=== PATIENT | female | born 1930 | race Caucasian/White ===

== ENCOUNTER 2017-10-24 06:51 | Inpatient (IN) ==
[2017-10-24] MEDS ORDERED: ceFAZolin 2 GM Premix Inj 2 GM/50 ML PIGGYBACK IV.SIG ONE (07:53)
[2017-10-24] MEDS ORDERED: Vancomycin Inj 1 GM/200 ML PIGGYBACK IV.SIG ONE (07:53)
[2017-10-24] MEDS ORDERED: Vancomycin Inj 1 GM/200 ML PIGGYBACK IV.SIG SCH (08:00)
[2017-10-24] MEDS ORDERED: ceFAZolin 2 GM Premix Inj 2 GM/50 ML PIGGYBACK IV.SIG SCH (08:00)
[2017-10-24] MEDS ORDERED: Chlorhexidine 4% Topical 120 APPLIC/120 ML Bottle TOPICAL SCH (08:00)
[2017-10-24] MEDS ORDERED: SODIUM CHLOR 0.9% IV.SIG SCH (08:00)
[2017-10-24] MEDS ORDERED: Chlorhexidine Gluconate 2% 1 Pack (2 Cloths) TOPICAL SCH (08:00)
[2017-10-24] MEDS ORDERED: Metoprolol Tartrate 25 MG Tablet PO SCH (08:00)
[2017-10-24] MEDS ORDERED: TRANEXAMIC ACID IV.SIG SCH (08:00)
[2017-10-24] MEDS ORDERED: Sodium Chlor 0.9% Inj 40 ML, Bupivacaine Liposo PF 1.3% Inj 20 ML P-ARTICULR SCH ×2 (08:00)
[2017-10-24] MEDS ORDERED: Sodium Chlor 0.9% Inj 500 ML IV.SIG SCH (08:00)
[2017-10-24] MEDS ORDERED: Sodium Chlor 0.9% Inj 40 ML, Bupivacaine Liposo PF 1.3% Inj 20 ML P-ARTICULR ONE ×2 (08:11)
[2017-10-24] MEDS ORDERED: Dexamethasone PF Inj 10 MG/ML Vial ONE (08:45)
[2017-10-24] MEDS ORDERED: Post-op Orders (for Pharmacy) OTHER STA (11:58)
[2017-10-24] MEDS ORDERED: SODIUM CHLOR 0.9% IV.SIG ONE (11:58)
[2017-10-24] MEDS ORDERED: Aluminum/Magnesium/Simethacone Susp 30 ML UDC PO PRN (11:58)
[2017-10-24] MEDS ORDERED: Bisacodyl 10 MG Supp RECTAL PRN (11:58)
[2017-10-24] MEDS ORDERED: TRANEXAMIC ACID IV.SIG ONE (11:58)
[2017-10-24] MEDS ORDERED: Phenylephrine/NS 1000 MCG/10ML Syringe IV.PUSH ONE (12:00)
[2017-10-24] MEDS ORDERED: Morphine Inj 4 MG/ML Vial IV.PUSH PRN (12:00)
[2017-10-24] MEDS ORDERED: Glycopyrrolate Inj 1 MG/5 ML Syringe IV.PUSH ONE (12:00)
[2017-10-24] MEDS ORDERED: Lidocaine PF 1% Inj 5 ML Syringe INFILTRATN ONE (12:00)
[2017-10-24] MEDS ORDERED: Neostigmine Inj 5 MG/5 ML Syringe IV.PUSH ONE (12:00)
--- NOTE | 2017-10-24 12:04 | XR ---
EXAM DATE: 10/24/2017 11:58 AM EDT AGE/SEX: 87 years / Female INDICATIONS: Left total hip replacement. CLINICAL DATA: This is the patient's initial encounter. Patient reports that signs and symptoms have been present for 1 day and indicates a pain score of Nonresponsive. MEDICAL/SURGICAL HISTORY: None. None. COMPARISON: No prior exams available for comparison. FINDINGS: 2 spot intraoperative fluoroscopic views of the left hip demonstrate a total hip arthroplasty. Compon ents appear well seated. CONCLUSION: Postoperative changes left hip arthroplasty. Electronically signed by: Zafar Painter MD 10/24/2017 12:03 PM EDT
--- NOTE | 2017-10-24 12:05 | P.OP ---
- Preoperative Diagnosis (1) Osteoarthritis of left hip - Postoperative Diagnosis (1) Osteoarthritis of left hip Date of procedure: 10/24/17 Procedure: Left total hip arthroplasty Surgeon: Dony Lucero MD Oven Laborer: LIBBY Wade The surgical procedure was assisted by my Advanced Registered Nurse Practitioner. My GEOSCIENCE PROFESSOR presence was necessary throughout this case for the manipulation and positioning of the surgical extremity. My GEOSCIENCE PROFESSOR was assisting me throughout the duration of this procedure. The skill set of an Advance Registered Nurse Practitioner was medically necessary to complete this procedure. During the surgical case, the robot technician was working at the back table and the Advance Registered Nurse Practitioner was directly assisting me. Operation and Findings: IMPLANT DESCRIPTION: 1. [place] Gription Cup, acetabular size 48. 2. [place] AltrX polyethylene, neutral. 4. [place] femoral stem size 9, no collar, standard offset. 5. Femoral head/neck metal, 32, +1. ESTIMATED BLOOD LOSS: 150 cc. JUSTIFICATION FOR PROCEDURE: The patient has end-stage osteoarthritis to the hip. There is an attached conservative measures pathway form in the chart that describes the nonoperative measures that were undertaken prior to consideration of surgical management. The patient understood the risks and benefits of surgical management. See my office notes for further details. PROCEDURE: The patient was brought back to the operative theatre. Adequate anesthesia was obtained. The patient received intravenous vancomycin and Ancef. The patient was carefully placed on the operative table. The lower extremity was prepped and draped in the usual sterile fashion. Fluoroscopic images were obtained. We made a standard anterior incision over the hip. We dissected through the TFL fascia, exposing the anterior capsule. Arthrotomy was performed in a T-shaped fashion. The capsule was tagged with a #2 FiberWire. End-stage arthritis was identified. Osteotomy was performed through the femoral neck exposing the acetabulum. Remnants of the labrum were resected and osteophytes were removed. We sequentially reamed the acetabulum. We trialed the hip and placed the final cup into position. This was done under fluoroscopic guidance to obtain the appropriate inclination and anteversion. A manhole cover was placed into the acetabular component. We then placed the final polyethylene into position and confirmed that it was well seated. Capsular attachments on the calcar and the inner aspect of the greater trochanter were resected. On the proximal aspect of the femur we used a rongeur , box osteotome, canal finder, sequential broaches and lateralizing rasp. We calcar planed the proximal femur. Then thoroughly irrigated the wound. We trialed the hip with the appropriate size stem. We placed the final stem in to position and trialed again. The hip was stable while it was externally rotated 70 degrees when the leg was lowered to the floor. The final head was applied, and final fluoroscopic images were obtained. The wound was thoroughly irrigated again. Interarticular injection of liposomal bupivacaine was given. The capsule was closed with #2 FiberWire and #1 Vicryl. The deep fascia was closed with a #2 Stratafix, followed by 2-0 Vicryl in the skin and Dermabond dressing. Postop plan is to weight-bear as tolerated. DVT prophylaxis will be performed with Brian, RADHA pope, early mobilization, and Lovenox followed by resumption of outpatient Plavix.
[2017-10-24] MEDS ORDERED: fentaNYL Citrate Inj 100 MCG/2 ML Ampul ONE ×2 (12:27)
[2017-10-24] MEDS ORDERED: *morphine SULFATE 4 MG/ML PERIprocedure ONLY ONE (12:57)
[2017-10-24] MEDS: Sod Chloride 0.9% Inj 1,000 ML IV.CONT SCH (13:04)
--- NOTE | 2017-10-24 13:10 | XR ---
EXAM DATE: 10/24/2017 1:01 PM EDT AGE/SEX: 87 years / Female INDICATIONS: Post op left hip. CLINICAL DATA: This is the patient's initial encounter. Patient reports that signs and symptoms have been present for 1 day and indicates a pain score of Nonresponsive. MEDICAL/SURGICAL HISTORY: None. None. COMPARISON: [facility] [place] INJECTION- HIP, LEFT, 08/04/2016. . FINDINGS: Left total hip arthroplasty. Small amount of subcutaneous air about the left hip as expected. Compone nts appear well seated. There is severe narrowing of the right hip joint. Osteophytosis is seen. No f racture or dislocation. CONCLUSION: Postop left hip. Electronically signed by: Zafar Painter MD 10/24/2017 1:09 PM EDT
--- NOTE | 2017-10-24 15:39 | P.DCO ---
- Physical Therapy Physical Therapy: Gait training, Transfer training, bed to chair Hip: Total hip Left Lower Extremity Weight Bearing: Weight bearing as tolerated Left Lower Extremity Range of Motion: Active ROM - Nursing Nursing: Lulú jeffrey Dressing changes: Do not change dressing Additional instructions: First dressing change in the office - Certification Need for Home Health services: I have seen patient Bernadine Sharma on 10/24/17. My clinical findings support the need for the requested home health care services because: Need for Home Health Services: Limited ability to care for self, High risk of falls Homebound Certification: I certify that my clinical findings support that this patient is homebound because: Homebound Certification: Post-op weakness, Unsteady gait/balance
--- NOTE | 2017-10-24 17:23 | P.CON ---
History of Present Illness Service: Orthopedic service Consult date: 10/24/17 Requesting Physician: Dony Lucero Reason for Consult: Assist with medical management Primary Care Provider: Ramakrishna Prince MD Family Provider: Ramakrishna Prince MD Chief Complaint: s/p left total hip arthroplasty History of Present Illness: This is an 87-year-old female who appears much younger than stated age with a past medical history significant for hypertension, dyslipidemia, history of CVA in her 40s with osteoarthritis who tried and failed numerous attempts at conservative therapy for treatment of her debilitating left hip pain and underwent an elective left total hip replacement surgery performed by Dr. Lucero earlier today. Hospitalist services have been consulted to assist with ongoing medical management. Patient seen and examined. Postoperatively, patient states she is doing very well. States her pain is controlled at present. She denies any complaints of fever or chills. She denies any chest pain or shortness of breath. She denies any nausea, vomiting or abdominal pain. Review of Systems All other systems reviewed negative except as stated in HPI PMFSH - History History Provided By: Patient - Medical History Medical History: Medical History (Last Reviewed 10/24/17 @ 15:30 by Amanda Escamilla, PT) Osteoporosis Sleep apnea H/O: GI bleed H/O: stroke High cholesterol History of hysterectomy Hypertension - Surgical History Surgical History: Surgical History (Last Reviewed 10/24/17 @ 15:30 by Amanda Escamilla PT) History of tonsillectomy and adenoidectomy Hx of bilateral cataract extraction Hx of cholecystectomy - Family History Family History: Family History (Last Updated 10/24/17 @ 17:22 by Elmira Broussard) Father Meningitis - Tobacco History Second Hand Smoke Exposure: No Smoking Status: Never smoker - Alcohol History How Often Do You Have a Drink Containing Alcohol: Never - Substance Use History Substance History: No History of Abuse - Travel History Recent Travel in the [place] Within the Last 8 Weeks: No Recent Travel Out of the Country Within the Last 8 Weeks: No Medications and Allergies Active Medications: Active Medications Hydrocodone Bitart/Acetaminophen (Amelia 5/325) 1 tab PO Q4H PRN PRN Reason: PAIN LESS THAN 5 ON SCALE Hydrocodone Bitart/Acetaminophen (Amelia 5/325) 2 tab PO Q6H PRN PRN Reason: PAIN SCALE 5 TO 10 Al Hydrox/Mg Hydrox/Simethicone (Mag-Al Plus Susp Liq) 30 ml PO Q6H PRN PRN Reason: INDIGESTION Al Hydroxide/Mg Hydroxide (Milk Of Magnesia Liq) 30 ml PO BID PRN PRN Reason: Mild Constipation Atorvastatin Calcium (Lipitor) 10 mg PO AC DINNER [facility] Bisacodyl (Dulcolax Supp) 10 mg RECTAL DAILY PRN PRN Reason: SEVERE CONSITIPATION Chlorhexidine Gluconate (Chlorhexidine 2% Cloth) 3 pack TOPICAL DEMOGRAPHER [facility] Stop: 10/27/17 07:50 Last Admin: 10/24/17 07:20 Dose: 3 pack Chlorhexidine Gluconate (Hibiclens 4% Topical) 1 applicatio TOPICAL ONCE [facility] Stop: 10/28/17 07:59 Last Admin: 10/24/17 07:30 Dose: 1 applicatio Dexamethasone Sodium Phosphate (Decadron Inj) 10 mg IV.PUSH ONCE ONE Stop: 10/25/17 08:01 Diphenhydramine HCl (Benadryl) 25 mg PO Q6H PRN PRN Reason: ITCHING Enoxaparin Sodium (Lovenox Inj) 40 mg SQ Q24H [facility] Hydrochlorothiazide (Hydrodiuril) 12.5 mg PO DAILY [facility] Lactated Ringer's (Lr 1000 Ml Inj) 1,000 mls @ 30 mls/hr IV.SIG .Q24H [facility] Stop: 10/27/17 07:50 Last Admin: 10/24/17 07:45 Dose: 30 mls/hr Sodium Chloride (Ns Inj) 500 mls @ 30 mls/hr IV.SIG .Q10H [facility] Stop: 10/27/17 07:50 Tranexamic Acid 574 mg/ Sodium (Chloride) 105.74 mls @ 200 mls/hr IV.SIG ONCE [facility] Stop: 10/25/17 07:59 Last Admin: 10/24/17 10:19 Dose: 200 mls/hr Vancomycin/Sodium Chloride (Vancomycin Inj) 1 gm in 200 mls @ 200 mls/hr IV.SIG DEMOGRAPHER [facility] Stop: 10/28/17 07:59 Last Infusion: 10/24/17 10:57 Dose: Infused Cefazolin Sodium 1,000 mg/ (Sodium Chloride) 100 mls @ 200 mls/hr IV.SIG Q6H [facility] Stop: 10/25/17 06:29 Sodium Chloride (Ns Inj) 1,000 mls @ 80 mls/hr IV.CONT .[id number] [facility] Last Admin: 10/24/17 13:04 Dose: 80 mls/hr Lactulose (Lactulose Liq) 30 ml PO DAILY PRN PRN Reason: SEVERE CONSITIPATION Losartan Potassium (Cozaar) 50 mg PO DAILY [facility] Metoprolol Tartrate (Lopressor) 25 mg PO DEMOGRAPHER [facility] Stop: 10/27/17 07:50 Last Admin: 10/24/17 08:08 Dose: Not Given Miscellaneous Information ([facility]) 1 each OTHER UNSCH PRN PRN Reason: SEE LABEL COMMENTS Stop: 10/25/17 13:50 Morphine Sulfate (Morphine Inj) 1 mg IV.PUSH Q3H PRN PRN Reason: BREAKTHROUGH PAIN Multivitamins/Minerals (Theragran-M) 1 tab PO BID [facility] Stop: 12/23/17 20:59 Ondansetron HCl (Zofran Inj) 4 mg IV.PUSH Q6H PRN PRN Reason: NAUSEA OR VOMITING Povidone Iodine (Betadine 5% Antisepsis Kit) 1 applicatio EACH NARE DEMOGRAPHER [facility] Stop: 10/27/17 07:50 Last Admin: 10/24/17 08:08 Dose: Not Given Povidone Iodine (Betadine 7.5% Scrub) 1 applicatio TOPICAL ONCE [facility] Stop: 10/28/17 07:59 Senna/Docusate Sodium (Chiquis-Colace) 1 tab PO BID [facility] Sennosides (Senokot) 17.2 mg PO BID PRN PRN Reason: Moderate Constipation Sodium Chloride (Ns Flush) 2 ml IV.FLUSH BID [facility] Sodium Chloride (Ns Flush) 2 ml IV.FLUSH PRN PRN PRN Reason: FLUSH AFTER USING IV ACCESS Vitamin D (Vitamin D3) 2,000 unit PO DAILY [facility] Zolpidem Tartrate (Ambien) 10 mg PO [facility] Allergies Allergy/AdvReac Type Severity Reaction Status Date / Time ciprofloxacin Allergy Severe Fatigue Verified 10/24/17 07:46 cortisone Allergy Severe STOMACH Verified 10/24/17 07:46 HEMORRHAGE nitrofurantoin Allergy Severe Fatigue Verified 10/24/17 07:46 Sulfa (Sulfonamide Allergy Severe Fatigue Verified 10/24/17 07:46 Antibiotics) Home Medications Medication Instructions Recorded Confirmed Type acetaminophen [Tylenol Arthritis 2 tab PO DAILY PRN 10/08/17 10/24/17 History Pain] atorvastatin 10 mg PO AC DINNER 10/08/17 10/24/17 History calcium carbonate [Calcium 600] 600 mg PO DAILY 10/08/17 10/24/17 History cholecalciferol (vitamin D3) 2 tab PO DAILY 10/08/17 10/24/17 History [Vitamin D3] clopidogrel 75 mg PO DAILY 10/08/17 10/24/17 History hydrochlorothiazide 12.5 mg PO DAILY 10/08/17 10/24/17 History losartan 50 mg PO DAILY 10/08/17 10/24/17 History [id number]-FA-Ca carb-vit K 1 tab PO DAILY 10/08/17 10/24/17 History [Women's Multivitamin] polyethylene glycol 3350 [Miralax] 17 g PO EVERY OTHER DAY PRN 10/08/17 History wheat dextrin [Benefiber Clear SF 3 g PO EVERY OTHER DAY 10/08/17 10/24/17 History (dextrin)] zolpidem 10 mg PO HS 10/08/17 10/24/17 History Physical Exam Vital signs: Vital Signs 10/24/17 07:40 10/24/17 12:22 10/24/17 12:30 Temperature 98.2 F 97.4 F L Pulse Rate 79 100 H 88 Respiratory Rate 20 22 14 Blood Pressure 142/71 H 136/63 135/62 Pulse Oximetry 94 L 94 L 10/24/17 12:45 10/24/17 13:00 10/24/17 13:26 Temperature Pulse Rate 80 81 Respiratory Rate 24 22 Blood Pressure 126/76 136/60 Pulse Oximetry 94 L 94 L 92 L 10/24/17 15:12 10/24/17 15:36 10/24/17 15:37 Temperature 98.0 F Pulse Rate 90 82 Respiratory Rate 20 18 Blood Pressure 129/61 125/52 L Pulse Oximetry 94 L 96 96 Intake & Output 10/23/17 10/24/17 10/24/17 18:59 06:59 18:59 Intake Total 2049 / 2049 Output Total 150 / 150 Balance 1900 / 1900 Weight 57.4 kg Intake: IV 250 / 250 Vancomycin Inj 1 gm In 200 ml @ 200 / 200 200 mls/hr IV.SIG DEMOGRAPHER CHARLIE Rx#:[id number] Ancef 2 GM Premix Inj 2 gm In 50 / 50 50 ml @ 100 mls/hr IV.SIG DEMOGRAPHER [facility] Rx#:[id number] Anesthesia Amount 1700 / 1700 Other 100 / 100 Output: Estimated Blood Loss 150 / 150 Other: Date of Last Bowel Movement 10/23/17 Weight On Admission 57.4 kg Narrative: GENERAL: This is a well-developed, well-nourished elderly female, in no acute distress. Appears younger than stated age. Sitting up in bed awake and alert. Appears comfortable. SKIN: Warm and dry. HEAD: Atraumatic. Normocephalic. EYES: Pupils equal and round. No scleral icterus. No injection or drainage. ENT: No nasal bleeding or discharge. Mucous membranes pink and moist. NECK: Trachea midline. No JVD. CARDIOVASCULAR: Regular rate and rhythm. RESPIRATORY: No accessory muscle use. Clear to auscultation. Breath sounds equal bilaterally. GASTROINTESTINAL: Abdomen soft, non-tender, nondistended. Hepatic and splenic margins not palpable. MUSCULOSKELETAL: Extremities without clubbing, cyanosis, or edema. No obvious deformities. s/p L THR with postop dressing in place. NEUROLOGICAL: Awake and alert. No obvious cranial nerve deficits. Motor grossly within normal limits. Able to move all extremities spontaneously. Normal speech. PSYCHIATRIC: Appropriate mood and affect; insight and judgment normal. Assessment and Plan - Assessment (1) Hypertension Code(s): I10 - Essential (primary) hypertension Status: Acute (2) Status post total hip replacement, left Code(s): Z96.642 - Presence of left artificial hip joint Status: Acute (3) Osteoarthritis of left hip Code(s): M16.12 - Unilateral primary osteoarthritis, left hip Status: Acute - Plan 87-year-old female who appears much younger than stated age with a past medical history significant for hypertension, dyslipidemia, history of CVA in her 40s with osteoarthritis who tried and failed numerous attempts at conservative therapy for treatment of her debilitating left hip pain and underwent an elective left total hip replacement surgery performed by Dr. Lucero earlier today. Hospitalist services have been consulted to assist with ongoing medical management. Osteoarthritis left hip failed efforts at conservative therapy status post elective left total hip replacement - Management per Orthopedic service - PT - monitor wound for healing - pain management per ortho service with bowel regimen - monitor CBC and electrolytes postoperatively - Fall precautions - Total hip precautions Hypertension - Continue patient on home dose of hydrochlorothiazide 12.5 mg daily and Cozaar 50mg daily - Clonidine as needed with parameters - Continue to monitor BP and adjust treatment accordingly Dyslipidemia - Continue patient on home dose of statin therapy Hx of CVA in her 40s TIA in 1990 - Continue on statin - Plan to resume her Plavix per Ortho - monitor DVT prophylaxis - SCD/RADHA hose/early mobilization/Lovenox per Ortho service Thank you very kindly for allowing us to assist in the care of this vickey octogenarian. We will continue to follow patient along with you. Discussed Condition With: patient, family at bedside, Dr. Ramos Discharge Planning: discharge per Ortho service
[2017-10-24] MEDS: Senna/Docusate Sodium 8.6/50 MG Tablet PO SCH (22:27)
[2017-10-24] MEDS: Multivitamin/Minerals Therapeutic Tablet PO SCH (22:28)
[2017-10-25 04:54] LABS: Baso % (Auto) 0.1 % (0.0-2.0); Hematocrit 36.1 % (35.0-46.0); Hemoglobin 11.7 gm/dL (11.6-15.3); Lymph # (Auto) 0.7 th/mm3 (1.0-4.8); Lymph % (Auto) 4.4 % (9.0-44.0); Mean Corpuscular HGB Conc 32.4 % (32.0-36.0); Mean Corpuscular Hemoglobin 28.2 pg (27.0-34.0); Mean Corpuscular Volume 86.9 fL (80.0-100.0); Mean Platelet Volume 8.6 fL (7.0-11.0); Mono # (Auto) 1.4 th/mm3 (0.0-0.9); Neut # (Auto) 13.7 th/mm3 (1.8-7.7); Neut % (Auto) 86.5 % (16.0-70.0); Platelet Count 351 th/mm3 (150-450); Red Blood Count 4.16 mil/mm3 (4.00-5.30); Red Cell Distribution Width 13.6 % (11.6-17.2); White Blood Count 15.8 th/mm3 (4.0-11.0)
[2017-10-25 05:03] LABS: Calcium 8.8 mg/dL (8.5-10.1); Carbon Dioxide 27.5 meq/L (21.0-32.0); Potassium 4.2 meq/L (3.5-5.1)
[2017-10-25] MEDS ORDERED: Dexamethasone Inj 20 MG/5 ML Vial IV.PUSH ONE (08:00)
[2017-10-25] MEDS: Senna/Docusate Sodium 8.6/50 MG Tablet PO SCH ×2 (08:05→21:57)
[2017-10-25] MEDS: Multivitamin/Minerals Therapeutic Tablet PO SCH ×2 (08:05→21:57)
[2017-10-25] MEDS: hydroCHLOROthiazide 25 MG Tablet PO SCH (08:05)
[2017-10-25] MEDS: Sod Chloride 0.9% Inj 1,000 ML IV.CONT SCH ×2 (08:19→13:00)
[2017-10-25] MEDS: Enoxaparin Inj 40 MG/0.4 ML Syringe SQ SCH (11:53)
--- NOTE | 2017-10-25 17:17 | P.PN ---
Subjective Interval history: Follow-up on patient status post left total hip arthroplasty. Patient seen and examined. Patient states she is doing very well. She denies any complaints of fever chills. She denies any chest pain or shortness of breath. She denies any nausea, vomiting or abdominal pain. She has not had a bowel movement and is not passing gas. She states she normally takes Miralax daily at home. She denies any urinary problems. Discussed with patient elevated temp earlier today but she states she was in the middle of eating hot turkey and gravy when the temperature was checked. Physical Exam Vital signs: Vital Signs 10/24/17 18:13 10/24/17 20:35 10/24/17 23:31 Temperature 97.6 F 97.8 F Pulse Rate 74 87 Respiratory Rate 18 18 18 Blood Pressure 120/57 L 104/57 L Pulse Oximetry 95 94 L 10/25/17 01:05 10/25/17 04:00 10/25/17 08:00 Temperature 98.0 F 97.5 F L Pulse Rate 89 89 Respiratory Rate 2 L 18 16 Blood Pressure 131/61 142/66 H Pulse Oximetry 93 L 94 L 10/25/17 10:09 10/25/17 12:00 10/25/17 16:00 Temperature 101.2 F H 98.2 F Pulse Rate 86 76 Respiratory Rate 14 15 Blood Pressure 110/60 119/68 Pulse Oximetry 96 95 91 L Intake & Output 10/24/17 10/25/17 10/25/17 18:59 06:59 18:59 Intake Total 3735.74 / 3735.74 580 / 580 1000 / 1000 Output Total 450 / 450 Balance 3285.74 / 3285.74 580 / 580 1000 / 1000 Weight 57.4 kg Intake: IV 1455.74 / 1455.74 100 / 100 1000 / 1000 NS Inj 1,000 ML @ 80 mls/hr IV. 1000 / 1000 CONT .[id number] [facility]LIE Rx#:[id number] LR 1000 mL Inj 1,000 ML @ 30 1000 / 1000 mls/hr IV.SIG .Q24H [facility] Rx#: [id number] Cyklokapron Inj 574 MG In NS 105.74 / 105.74 Inj 100 ML @ 200 mls/hr IV.SIG ONCE ONE Rx#:[id number] Vancomycin Inj 1 gm In 200 ml @ 200 / 200 200 mls/hr IV.SIG WILDLIFE TECHNICIAN [facility]LIE Rx#:[id number] Ancef 2 GM Premix Inj 2 gm In 50 / 50 50 ml @ 100 mls/hr IV.SIG WILDLIFE TECHNICIAN [facility] Rx#:[id number] Ancef Inj 1,000 MG In NS Inj 100 / 100 100 / 100 100 ML @ 200 mls/hr IV.SIG Q6H [facility] Rx#:[id number] Oral 480 / 480 480 / 480 Anesthesia Amount 1700 / 1700 Other 100 / 100 Output: Urine 300 / 300 Estimated Blood Loss 150 / 150 Other: # Voids 2 Date of Last Bowel Movement 10/23/17 10/23/17 # Bowel Movements 0 Weight On Admission 57.4 kg Narrative: GENERAL: This is a well-developed, well-nourished elderly female, in no acute distress. Appears younger than stated age. Sitting up in bed awake and alert. Appears comfortable. Family is at the bedside. SKIN: Warm and dry. HEAD: Atraumatic. Normocephalic. EYES: Pupils equal and round. No scleral icterus. No injection or drainage. ENT: No nasal bleeding or discharge. Mucous membranes pink and moist. NECK: Trachea midline. No JVD. CARDIOVASCULAR: Regular rate and rhythm. RESPIRATORY: No accessory muscle use. Clear to auscultation. Breath sounds equal bilaterally. GASTROINTESTINAL: Abdomen soft, non-tender, nondistended. Hepatic and splenic margins not palpable. +Hypoactive BS. MUSCULOSKELETAL: Extremities without clubbing, cyanosis, or edema. No obvious deformities. s/p L THR with postop dressing in place C/D/I. NEUROLOGICAL: Awake and alert. No obvious cranial nerve deficits. Motor grossly within normal limits. Able to move all extremities spontaneously. Normal speech. PSYCHIATRIC: Appropriate mood and affect; insight and judgment normal. Results - Labs CBC & Chem 7: 10/25/17 03:43 10/25/17 03:43 Laboratory Results - last 24 hr 10/25/17 10/25/17 03:43 03:43 WBC 15.8 H RBC 4.16 Hgb 11.7 Hct 36.1 MCV 86.9 MCH 28.2 MCHC 32.4 RDW 13.6 Plt Count 351 MPV 8.6 Neut % (Auto) 86.5 H Lymph % (Auto) 4.4 L Douglas % (Auto) 9.0 H Eos % (Auto) 0.0 Baso % (Auto) 0.1 Neut # (Auto) 13.7 H Lymph # (Auto) 0.7 L Douglas # (Auto) 1.4 H Eos # (Auto) 0.0 Baso # (Auto) 0.0 WBC Differential . Differential Comment Auto diff final Sodium 142 Potassium 4.2 Chloride 105 Carbon Dioxide 27.5 Anion Gap 10 BUN 16 Creatinine 1.10 H Estimated GFR 47 L Random Glucose 142 H Calcium 8.8 - Imaging ITS Impressions Hip X-Ray 10/24/17 12:02 CONCLUSION: Postop left hip. Assessment and Plan - Assessment (1) Hypertension Code(s): I10 - Essential (primary) hypertension Status: Acute (2) Status post total hip replacement, left Code(s): Z96.642 - Presence of left artificial hip joint Status: Acute (3) Osteoarthritis of left hip Code(s): M16.12 - Unilateral primary osteoarthritis, left hip Status: Acute - Plan 87-year-old female who appears much younger than stated age with a past medical history significant for hypertension, dyslipidemia, history of CVA in her 40s with osteoarthritis who tried and failed numerous attempts at conservative therapy for treatment of her debilitating left hip pain and underwent an elective left total hip replacement surgery performed by Dr. Lucero earlier today. Hospitalist services have been consulted to assist with ongoing medical management. Osteoarthritis left hip failed efforts at conservative therapy status post elective left total hip replacement - Management per Orthopedic service - continue with PT - monitor wound for healing - pain management per ortho service with bowel regimen. Will add Miralax daily per patients home med regimen. - monitor CBC and electrolytes postoperatively - Fall precautions - Total hip precautions Hypertension, controlled - Continue patient on home dose of hydrochlorothiazide 12.5 mg daily and Cozaar 50mg daily - Clonidine as needed with parameters - Continue to monitor BP and adjust treatment accordingly Fever Leukocytosis Tmax 101.2 Patient states she was eating hot turkey and gravy at the time her temperature was taken. Repeat temp afebrile - Suspect leukocytosis and elevated temp in large part secondary to postop reaction. Patient looks well. She is not tachycardic. Blood pressures well controlled. She did not appear septic. She denies any acute medical complaints. - Monitor temperatures - Encouraged use of IS at bedside - Repeat CBC in am VELIA ?CKD - Creatinine 1.10 - encourage fluid intake - avoid nephrotoxic agents - Continue to monitor kidney function, repeat BMP in am Hyperglycemia No reported history of diabetes - obtain HgbA1c Dyslipidemia - Continue patient on home dose of statin therapy Hx of CVA in her 40s TIA in 1990 - Continue on statin - Plan to resume her Plavix per Ortho - monitor Chronic constipation - will resume patients home med Miralax daily - continue on scheduled PeriColace - monitor for BM DVT prophylaxis - SCD/RADHA hose/early mobilization/Lovenox per Ortho service Discussed Condition With: patient, Dr. Ramos Discharge Planning: discharge per Ortho service
[2017-10-25] MEDS: Polyethylene Glycol 3350 17 GM Packet PO SCH (17:55)
--- NOTE | 2017-10-25 19:01 | P.PNOP ---
Subjective Interval history: The patient reports some mild discomfort but states the pain is better than the osteoarthritic pain she was experiencing preoperatively. Physical Exam Vital signs: Vital Signs 10/24/17 20:35 10/24/17 23:31 10/25/17 01:05 Temperature 97.6 F 97.8 F Pulse Rate 74 87 Respiratory Rate 18 18 2 L Blood Pressure 120/57 L 104/57 L Pulse Oximetry 95 94 L 10/25/17 04:00 10/25/17 08:00 10/25/17 10:09 Temperature 98.0 F 97.5 F L Pulse Rate 89 89 Respiratory Rate 18 16 Blood Pressure 131/61 142/66 H Pulse Oximetry 93 L 94 L 96 10/25/17 12:00 10/25/17 16:00 Temperature 101.2 F H 98.2 F Pulse Rate 86 76 Respiratory Rate 14 15 Blood Pressure 110/60 119/68 Pulse Oximetry 95 91 L Intake & Output 10/24/17 10/25/17 10/25/17 18:59 06:59 18:59 Intake Total 3735.74 / 3735.74 580 / 580 1000 / 1000 Output Total 450 / 450 Balance 3285.74 / 3285.74 580 / 580 1000 / 1000 Weight 57.4 kg Intake: IV 1455.74 / 1455.74 100 / 100 1000 / 1000 NS Inj 1,000 ML @ 80 mls/hr IV. 1000 / 1000 CONT .[id number] [facility] Rx#:[id number] LR 1000 mL Inj 1,000 ML @ 30 1000 / 1000 mls/hr IV.SIG .Q24H [facility] Rx#: [id number] Cyklokapron Inj 574 MG In NS 105.74 / 105.74 Inj 100 ML @ 200 mls/hr IV.SIG ONCE ONE Rx#:[id number] Vancomycin Inj 1 gm In 200 ml @ 200 / 200 200 mls/hr IV.SIG [place] [facility] Rx#:[id number] Ancef 2 GM Premix Inj 2 gm In 50 / 50 50 ml @ 100 mls/hr IV.SIG [employer] [place] [facility] Rx#:[id number] Ancef Inj 1,000 MG In NS Inj 100 / 100 100 / 100 100 ML @ 200 mls/hr IV.SIG Q6H [facility] Rx#:[id number] Oral 480 / 480 480 / 480 Anesthesia Amount 1700 / 1700 Other 100 / 100 Output: Urine 300 / 300 Estimated Blood Loss 150 / 150 Other: # Voids 2 Date of Last Bowel Movement 10/23/17 10/23/17 # Bowel Movements 0 Weight On Admission 57.4 kg Narrative: The patient's dressing is clean, dry, and intact. EHL/TA/G are intact. 2+ pedal pulse. The patient's calf is soft and nontender. Sensation is intact to light touch distally. The patient does have a small blister about the left anterior delarosa. Results - Labs CBC & Chem 7: 10/25/17 03:43 10/25/17 03:43 Laboratory Results - last 24 hr 10/25/17 10/25/17 03:43 03:43 WBC 15.8 H RBC 4.16 Hgb 11.7 Hct 36.1 MCV 86.9 MCH 28.2 MCHC 32.4 RDW 13.6 Plt Count 351 MPV 8.6 Neut % (Auto) 86.5 H Lymph % (Auto) 4.4 L [place] % (Auto) 9.0 H Eos % (Auto) 0.0 Baso % (Auto) 0.1 Neut # (Auto) 13.7 H Lymph # (Auto) 0.7 L [place] # (Auto) 1.4 H Eos # (Auto) 0.0 Baso # (Auto) 0.0 WBC Differential . Differential Comment Auto diff final Sodium 142 Potassium 4.2 Chloride 105 Carbon Dioxide 27.5 Anion Gap 10 BUN 16 Creatinine 1.10 H Estimated GFR 47 L Random Glucose 142 H Calcium 8.8 Assessment and Plan - Problem List (1) Status post total hip replacement, left Code(s): Z96.642 - Presence of left artificial hip joint Status: Acute (2) Osteoarthritis of left hip Code(s): M16.12 - Unilateral primary osteoarthritis, left hip Status: Acute - Assessment and Plan POD #1: Left total hip arthroplasty 1. Weightbearing as tolerated on [left] lower extremity. 2. Lovenox followed by resumption of Plavix for DVT prophylaxis. 3. Ice as needed for swelling. 4. Stable per ortho for discharge to [facility] on Sunday. 5. The patient will follow up with Dr. Lucero and/or LIBBY Johnson as previously scheduled.
[2017-10-25 22:46] LABS: Hemoglobin A1c 5.8 % (4.3-6.0)
[2017-10-26 06:11] LABS: Baso % (Auto) 0.1 % (0.0-2.0); Hematocrit 30.7 % (35.0-46.0); Hemoglobin 10.2 gm/dL (11.6-15.3); Lymph # (Auto) 0.9 th/mm3 (1.0-4.8); Lymph % (Auto) 6.3 % (9.0-44.0); Mean Corpuscular HGB Conc 33.1 % (32.0-36.0); Mean Corpuscular Hemoglobin 28.5 pg (27.0-34.0); Mean Corpuscular Volume 86.3 fL (80.0-100.0); Mean Platelet Volume 8.8 fL (7.0-11.0); Mono # (Auto) 1.6 th/mm3 (0.0-0.9); Mono % (Auto) 11.6 % (0.0-8.0); Neut # (Auto) 11.4 th/mm3 (1.8-7.7); Platelet Count 305 th/mm3 (150-450); Red Blood Count 3.56 mil/mm3 (4.00-5.30); Red Cell Distribution Width 13.5 % (11.6-17.2); White Blood Count 13.9 th/mm3 (4.0-11.0)
[2017-10-26 06:36] LABS: Carbon Dioxide 30.7 meq/L (21.0-32.0); Potassium 4.3 meq/L (3.5-5.1)
[2017-10-26 07:26] VITALS: O2SAT 96
[2017-10-26] MEDS: Sod Chloride 0.9% Inj 1,000 ML IV.CONT SCH ×2 (08:26→14:41)
[2017-10-26] MEDS: hydroCHLOROthiazide 25 MG Tablet PO SCH (08:30)
[2017-10-26] MEDS: Multivitamin/Minerals Therapeutic Tablet PO SCH ×2 (08:31→20:05)
[2017-10-26] MEDS: Senna/Docusate Sodium 8.6/50 MG Tablet PO SCH ×2 (08:32→20:07)
[2017-10-26] MEDS: Polyethylene Glycol 3350 17 GM Packet PO SCH (08:32)
[2017-10-26] MEDS: Enoxaparin Inj 40 MG/0.4 ML Syringe SQ SCH (12:16)
--- NOTE | 2017-10-26 14:53 | P.PN ---
Subjective Interval history: Follow-up on patient status post left total hip arthroplasty. Patient seen and examined. Patient ambulating around the unit with the assistance of a walker. She reports a burning sensation in the left thigh. Patient denies any acute medical complaints. She states she feels well. She is looking forward to going home tomorrow. She denies any fever chills. She denies any chest pain or shortness of breath. She denies any nausea, vomiting or abdominal pain. + BM. Physical Exam Vital signs: Vital Signs 10/25/17 16:00 10/25/17 19:30 10/25/17 20:00 Temperature 98.2 F 98.2 F Pulse Rate 76 83 Respiratory Rate 15 18 Blood Pressure 119/68 154/80 H Pulse Oximetry 91 L 95 95 10/26/17 00:00 10/26/17 04:00 10/26/17 08:00 Temperature 96.2 F L 98.8 F 97.2 F L Pulse Rate 87 79 Respiratory Rate 16 16 16 Blood Pressure 119/57 L 115/58 L 123/58 L Pulse Oximetry 97 96 96 10/26/17 12:00 Temperature 98.0 F Pulse Rate 77 Respiratory Rate 16 Blood Pressure 120/58 L Pulse Oximetry 96 Intake & Output 10/25/17 10/26/17 10/26/17 18:59 06:59 18:59 Intake Total 1000 / 1000 1000 / 1000 Balance 1000 / 1000 1000 / 1000 Intake: IV 1000 / 1000 1000 / 1000 NS Inj 1,000 ML @ 80 mls/hr IV. 1000 / 1000 CONT .[id number] [facility] Rx#:[id number] LR 1000 mL Inj 1,000 ML @ 30 1000 / 1000 mls/hr IV.SIG .Q24H [facility] Rx#: [id number] Other: Date of Last Bowel Movement 10/23/17 Narrative: GENERAL: This is a well-developed, well-nourished elderly female, in no acute distress. Appears younger than stated age. Awake and alert. Ambulating very well around the unit with assistance of walker. SKIN: Warm and dry. HEAD: Atraumatic. Normocephalic. EYES: Pupils equal and round. No scleral icterus. No injection or drainage. ENT: No nasal bleeding or discharge. Mucous membranes pink and moist. NECK: Trachea midline. No JVD. CARDIOVASCULAR: Regular rate and rhythm. RESPIRATORY: No accessory muscle use. Clear to auscultation. Breath sounds equal bilaterally. GASTROINTESTINAL: Abdomen soft, non-tender, nondistended. Hepatic and splenic margins not palpable. +Hypoactive BS. MUSCULOSKELETAL: s/p L THR with postop dressing in place C/D/I. 2+pitting edema in left lower leg. Calf somewhat firm but nontender. NEUROLOGICAL: Awake and alert. No obvious cranial nerve deficits. Motor grossly within normal limits. Able to move all extremities spontaneously. Normal speech. PSYCHIATRIC: Appropriate mood and affect; insight and judgment normal. Results - Labs CBC & Chem 7: 10/26/17 03:29 10/26/17 03:27 Laboratory Results - last 24 hr 10/25/17 10/26/17 10/26/17 03:43 03:27 03:29 WBC 13.9 H RBC 3.56 L Hgb 10.2 L Hct 30.7 L MCV 86.3 MCH 28.5 MCHC 33.1 RDW 13.5 Plt Count 305 MPV 8.8 Neut % (Auto) 82.0 H Lymph % (Auto) 6.3 L [place] % (Auto) 11.6 H Eos % (Auto) 0.0 Baso % (Auto) 0.1 Neut # (Auto) 11.4 H Lymph # (Auto) 0.9 L [place] # (Auto) 1.6 H Eos # (Auto) 0.0 Baso # (Auto) 0.0 WBC Differential . Differential Comment Auto diff final Sodium 143 Potassium 4.3 Chloride 105 Carbon Dioxide 30.7 Anion Gap 7 BUN 25 H Creatinine 0.86 Estimated GFR 62 L Random Glucose 120 H Hemoglobin A1c 5.8 Calcium 9.0 - Imaging Hip X-Ray 10/24/17 00:00 CONCLUSION: Postoperative changes left hip arthroplasty. Hip X-Ray 10/24/17 12:02 CONCLUSION: Postop left hip. Assessment and Plan - Assessment (1) Hypertension Code(s): I10 - Essential (primary) hypertension Status: Acute (2) Status post total hip replacement, left Code(s): Z96.642 - Presence of left artificial hip joint Status: Acute (3) Osteoarthritis of left hip Code(s): M16.12 - Unilateral primary osteoarthritis, left hip Status: Acute - Plan 87-year-old female who appears much younger than stated age with a past medical history significant for hypertension, dyslipidemia, history of CVA in her 40s with osteoarthritis who tried and failed numerous attempts at conservative therapy for treatment of her debilitating left hip pain and underwent an elective left total hip replacement surgery performed by Dr. Lucero earlier today. Hospitalist services have been consulted to assist with ongoing medical management. Osteoarthritis left hip failed efforts at conservative therapy status post elective left total hip replacement - Management per Orthopedic service - continue with PT - patient ambulated 200ft x 2 today - monitor wound for healing - pain management per ortho service with bowel regimen. - monitor CBC and electrolytes postoperatively - Fall precautions - Total hip precautions LLE edema, likely expected postoperative change - will obtain LLE doppler US to r/o DVT - discussed use of compression socks/RADHA hose Hypertension, controlled - Continue patient on home dose of hydrochlorothiazide 12.5 mg daily and Cozaar 50mg daily - Clonidine as needed with parameters - Continue to monitor BP and adjust treatment accordingly Fever with Tmax 101.2, suspect aberrant recording as patient eating hot turkey and gravy at time temperature was taken. Leukocytosis, improving No elevated temp recorded in past 24hrs. - Suspect leukocytosis and elevated temp in large part secondary to postop reaction. Patient looks well. She is not tachycardic. Blood pressures well controlled. She does not appear septic. She denies any acute medical complaints. - Monitor temperatures - Encouraged use of IS at bedside VELIA, resolved - Creatinine improved from 1.10 to 0.86 - encourage fluid intake - avoid nephrotoxic agents - Continue to monitor kidney function as indicated Hyperglycemia No reported history of diabetes HgbA1c 5.8 - nondiabetic range Dyslipidemia - Continue patient on home dose of statin therapy Hx of CVA in her 40s TIA in 1990 - Continue on statin - Plan to resume her Plavix per Ortho - monitor Chronic constipation +BM today - continue on current bowel regimen DVT prophylaxis - SCD/RADHA hose/early mobilization/Lovenox per Ortho service Code Status: Full Discussed Condition With: patient, Dr. Ramos Discharge Planning: discharge per Ortho service
--- NOTE | 2017-10-26 16:45 | P.PNOP ---
Subjective Interval history: The patient is out of bed in a chair talking with family. The patient states she is having minimal pain about the left hip. She describes the pain she is having as more of a burning sensation. Physical Exam Vital signs: Vital Signs 10/25/17 19:30 10/25/17 20:00 10/26/17 00:00 Temperature 98.2 F 96.2 F L Pulse Rate 83 Respiratory Rate 18 16 Blood Pressure 154/80 H 119/57 L Pulse Oximetry 95 95 97 10/26/17 04:00 10/26/17 08:00 10/26/17 12:00 Temperature 98.8 F 97.2 F L 98.0 F Pulse Rate 87 79 77 Respiratory Rate 16 16 16 Blood Pressure 115/58 L 123/58 L 120/58 L Pulse Oximetry 96 96 96 Intake & Output 10/25/17 10/26/17 10/26/17 18:59 06:59 18:59 Intake Total 1000 / 1000 1000 / 1000 Balance 1000 / 1000 1000 / 1000 Intake: IV 1000 / 1000 1000 / 1000 NS Inj 1,000 ML @ 80 mls/hr IV. 1000 / 1000 CONT .[id number] [facility] Rx#:[id number] LR 1000 mL Inj 1,000 ML @ 30 1000 / 1000 mls/hr IV.SIG .Q24H [facility] Rx#: [id number] Other: Date of Last Bowel Movement 10/23/17 10/26/17 # Bowel Movements 1 Narrative: The patient's dressing is clean, dry, and intact. EHL/TA/G are intact. 2+ pedal pulse. The patient's calf is soft and nontender. Sensation is intact to light touch distally. The patient has minimal swelling and no ecchymosis. Results - Labs CBC & Chem 7: 10/26/17 03:29 10/26/17 03:27 Laboratory Results - last 24 hr 10/25/17 10/26/17 10/26/17 03:43 03:27 03:29 WBC 13.9 H RBC 3.56 L Hgb 10.2 L Hct 30.7 L MCV 86.3 MCH 28.5 MCHC 33.1 RDW 13.5 Plt Count 305 MPV 8.8 Neut % (Auto) 82.0 H Lymph % (Auto) 6.3 L [place] % (Auto) 11.6 H Eos % (Auto) 0.0 Baso % (Auto) 0.1 Neut # (Auto) 11.4 H Lymph # (Auto) 0.9 L [place] # (Auto) 1.6 H Eos # (Auto) 0.0 Baso # (Auto) 0.0 WBC Differential . Differential Comment Auto diff final Sodium 143 Potassium 4.3 Chloride 105 Carbon Dioxide 30.7 Anion Gap 7 BUN 25 H Creatinine 0.86 Estimated GFR 62 L Random Glucose 120 H Hemoglobin A1c 5.8 Calcium 9.0 Assessment and Plan - Problem List (1) Status post total hip replacement, left Code(s): Z96.642 - Presence of left artificial hip joint Status: Acute (2) Osteoarthritis of left hip Code(s): M16.12 - Unilateral primary osteoarthritis, left hip Status: Acute - Assessment and Plan POD #2: Left total hip arthroplasty 1. Weightbearing as tolerated on [left] lower extremity. 2. Lovenox followed by resumption of Plavix for DVT prophylaxis. 3. Ice as needed for swelling. 4. Stable per ortho for discharge to [facility] on Sunday. 5. The patient will follow up with Dr. Lucero and/or LIBBY Johnson as previously scheduled.
--- NOTE | 2017-10-26 21:06 | US ---
EXAM DATE: 10/26/2017 8:48 PM EDT AGE/SEX: 87 years / Female INDICATIONS: Left leg pain. Post op left hip replacement. CLINICAL DATA: This is the patient's initial encounter. Patient reports that signs and symptoms have been present for 2 days and indicates a pain score of 5/10. MEDICAL/SURGICAL HISTORY: Hypercholesterolemia. Hypertension. GI Bleed. Stroke. Osteoporosis . Sleep Apnea. Hysterectomy. Tonsillectomy. Left hip replacement - 10/24/17. COMPARISON: No prior exams available for comparison. TECHNIQUE: Venous ultrasound of both lower extremities was performed from the inguinal ligament to t he proximal calf. Real-time, color Doppler and spectral tracing, compression and augmentation techni ques were used. FINDINGS: Normal compression of the deep venous system from the inguinal region to the proximal calf . No echogenic clot is seen. Normal response of the venous system to augmentation and respiration. CONCLUSION: 1. The study is negative for lower extremity deep venous thrombosis. Electronically signed by: Edwin Ojeda MD 10/26/2017 9:04 PM EDT
[2017-10-27] MEDS: Sod Chloride 0.9% Inj 1,000 ML IV.CONT SCH (05:05)
--- NOTE | 2017-10-27 07:39 | P.PNOP ---
Subjective Interval history: The patient states she had a rough night due to difficulty sleeping. Patient states the pain is minimal. Patient ready to go to [facility] today. Physical Exam Vital signs: Vital Signs 10/26/17 08:00 10/26/17 12:00 10/26/17 16:00 Temperature 97.2 F L 98.0 F 98.5 F Pulse Rate 79 77 76 Respiratory Rate 16 16 16 Blood Pressure 123/58 L 120/58 L 125/60 Pulse Oximetry 96 96 97 10/26/17 20:00 10/26/17 22:17 10/27/17 00:00 Temperature 97.6 F 97.7 F Pulse Rate 77 83 Respiratory Rate 17 16 17 Blood Pressure 144/65 H 130/64 Pulse Oximetry 97 95 Intake & Output 10/26/17 10/27/17 10/27/17 18:59 06:59 18:59 Intake Total 1000 / 1000 Balance 1000 / 1000 Intake: IV 1000 / 1000 LR 1000 mL Inj 1,000 ML @ 30 1000 / 1000 mls/hr IV.SIG .Q24H [facility] Rx#: [id number] Other: Date of Last Bowel Movement 10/26/17 # Bowel Movements 1 Narrative: The patient's dressing is clean, dry, and intact. EHL/TA/G are intact. 2+ pedal pulse. The patient's calf is soft and nontender. Sensation is intact to light touch distally. The patient has minimal swelling and no ecchymosis. There is a small blister to the left lower leg. Results - Labs CBC & Chem 7: 10/26/17 03:29 10/26/17 03:27 - Imaging Impressions Venous Doppler Study 10/26/17 00:00 CONCLUSION: 1. The study is negative for lower extremity deep venous thrombosis. Assessment and Plan - Problem List (1) Status post total hip replacement, left Code(s): Z96.642 - Presence of left artificial hip joint Status: Acute (2) Osteoarthritis of left hip Code(s): M16.12 - Unilateral primary osteoarthritis, left hip Status: Acute - Assessment and Plan POD #3: Left total hip arthroplasty 1. Weightbearing as tolerated on [left] lower extremity. 2. Lovenox followed by resumption of Plavix for DVT prophylaxis. 3. Ice as needed for swelling. 4. Stable per ortho for discharge to [facility] today. 5. The patient will follow up with Dr. Lucero and/or LIBBY Johnson as previously scheduled.
[2017-10-27] MEDS: hydroCHLOROthiazide 25 MG Tablet PO SCH (09:40)
[2017-10-27] MEDS: Senna/Docusate Sodium 8.6/50 MG Tablet PO SCH (09:40)
[2017-10-27] MEDS: Polyethylene Glycol 3350 17 GM Packet PO SCH (09:40)
[2017-10-27] MEDS: Multivitamin/Minerals Therapeutic Tablet PO SCH (09:41)
[2017-10-27] MEDS: Enoxaparin Inj 40 MG/0.4 ML Syringe SQ SCH (11:32)
--- NOTE | 2017-10-30 17:24 | P.DS ---
Date of admission: 10/24/17 06:51 Primary care physician: Ramakrishna Prince MD Attending physician on discharge: Dony Lucero Anticipated date of discharge: 10/27/17 Brief History from admission: The patient has a history of LEFT hip severe osteoarthritis. The patient was admitted to the hospital for a LEFT total hip arthroplasty. DS: Diagnosis - Discharge Diagnosis (1) Status post total hip replacement, left Status: Acute Diagnosis: Principal (2) Osteoarthritis of left hip Status: Acute Diagnosis: Principal DS: Medications - Discharge Medications Prescriptions: enoxaparin [Lovenox] 40 mg SUB-Q DAILY 10 Days #10 ml hydrocodone-acetaminophen [Camden] 1 - 2 tab PO Q4-6H #50 tab DS: Summary Hospital Course: The patient was admitted to the hospital for severe osteoarthritis of the LEFT hip to have a LEFT total hip arthroplasty. The patient's surgery went well with no complication. The patient is weightbearing as tolerated on the LEFT lower extremity. The patient was placed on Lovenox and then will resume her Plavix medication. The patient is on a regular diet. The patient was discharged from the hospital to a detention facility. The patient will follow-up in the office as previously scheduled with Dr. Lucero and/or LIBBY Johnson. - Time Spent with Patient Total time spent providing and/or coordinating discharge services: Greater than 30 minutes - Quality: VTE Deep Vein Thrombosis/Pulmonary Embolism Present on Admission: No Exam Narrative: see the patient's last progress note for physical exam Results Procedures completed during hospitalization: Left JANELL - Impressions ITS Impressions Hip X-Ray 10/24/17 12:02 CONCLUSION: Postop left hip. Venous Doppler Study 10/26/17 00:00 CONCLUSION: 1. The study is negative for lower extremity deep venous thrombosis. Discharge Plan - Discharge Disposition Patient Disposition: Discharge Home - Discharge Condition Condition: Stable - Discharge Order Discharge Orders: Discharge Order (Routine); Ordered 10/24/17 Ordered By: Polo Tello - Discharge Details Anticipated Discharge Date: 10/27/17 Discharge Comment: The patient should f/u in the office as previously scheduled with Dr. Lucero or LIBBY Johnson - Physicians Team Primary Care Provider: Ramakrishna Prince Attending Provider: Dony Lucero Other Providers: Radha Ramos MD ; [facility],[employer] - Rxs /Orders / Referrals /Forms Prescriptions: New enoxaparin [Lovenox] 40 mg/0.4 mL Syringe 40 mg SUB-Q DAILY 10 Days Qty: 10 RF: 0 hydrocodone-acetaminophen [Camden] 5-325 mg Tablet 1 - 2 tab PO Q4-6H Qty: 50 RF: 0 Continue atorvastatin 10 mg Tablet 10 mg PO AC DINNER calcium carbonate [Calcium 600] 600 mg calcium (1,500 mg) Tablet 600 mg PO DAILY cholecalciferol (vitamin D3) [Vitamin D3] 2,000 unit Tablet 2 tab PO DAILY hydrochlorothiazide 12.5 mg Tablet 12.5 mg PO DAILY losartan 50 mg Tablet 50 mg PO DAILY [id number]-FA-Ca carb-vit K [Women's Multivitamin] 18 mg iron-400 mcg-500 mg Tablet 1 tab PO DAILY polyethylene glycol 3350 [Miralax] 17 gram Powder In Packet 17 g PO EVERY OTHER DAY PRN (Reason: Constipation) wheat dextrin [Benefiber Clear SF (dextrin)] 3 gram/3.5 gram Powder In Packet 3 g PO EVERY OTHER DAY zolpidem 10 mg Tablet 10 mg PO HS Discontinued acetaminophen [Tylenol Arthritis Pain] 650 mg Tablet Extended Release 2 tab PO DAILY PRN (Reason: Pain) clopidogrel 75 mg Tablet 75 mg PO DAILY Ambulatory Orders / Order Sets / DME: Adjustable Commode 3-in-1 (1 each) (Routine) Location: Determined by Patient Ordered By: Polo Tello Walker With Front Wheels (1 each) (Routine) Location: Determined by Patient Ordered By: Polo Tello Referrals: Ramakrishna Prince MD [Primary Care Provider] - See Instructions - Discharge Instructions Patient Printed Instructions: Hydrocodone/Acetaminophen (By mouth), Enoxaparin (By injection), How to Choose and Use a Walker (GEN), Total Hip Replacement (DC) Additional Instructions: Prescriptions sent with patient: Camden 5-325mg and Lovenox 40mg. - Post Discharge Care Plan Care Plan Goals: Discharge Care Plan Goals for Total Hip Replacement You had a hip replacement surgery. This means your natural hip was replaced with an artificial joint (prosthesis). You may be recovering at home or in a rehabilitation facility. Either way, you must take care of your new hip. Here are some goals to help you heal well. Directions to Meet your Goals: 1. Activity & Exercises: * Take pain medicine as directed by your doctor. * Dont drive until your doctor says its OK. And never drive while taking opioid pain medicine. * Wear the support stockings you were given in the hospital as directed by your surgeon. * Dont sit for more than 30 to 45 minutes at one time. * Dont lean forward while sitting. * Dont cross your legs. * Keep your feet flat on the floor. Dont turn your foot or leg inward. This stresses your hip joint. * Use an elevated toilet seat for 6 weeks after surgery. * Nap if you are tired, but dont stay in bed all day. * Sit on a firm cushion when you ride in a car and avoid sitting too low. Try not to bend your hip too much when getting in and out of the car. 2. Prevent Falls/Injury: * Follow your doctors orders regarding how much weight to put on the affected leg. * Dont bend at the hip when you bend over. Don't bend at the waist to put on socks and shoes. And avoid picking up items from the floor. * Use a cane, crutches, a walker, or handrails until your balance, flexibility, and strength improve. And remember to ask for help from others when you need it. * Free up your hands so that you can use them to keep balance. Use a evelio pack , apron, or pockets to carry things. * Arrange your household to keep the items you need handy. Keep everything else out of the way. * Remove items that may cause you to fall, such as throw rugs and electrical cords. * Use nonslip bath mats, grab bars, an elevated toilet seat, and a shower chair in your bathroom * Sit on a shower stool or chair when you shower to keep from falling. 3. Precautions: * Prevent infection. Any infection will need to be treated immediately. Call your doctor right away if you think you might have an infection. * Tell your dentist that you have an artificial joint and take antibiotics as prescribed before any dental work. * Tell all your healthcare providers about your artificial joint before any medical procedure. * Maintain a healthy weight. Get help to lose any extra pounds. Added body weight puts stress on the joints. 4. Incision Care: * Prevent infection by washing your hands often. If an infection occurs, it will need to be treated right away. * Call your doctor right away if you think you may have an infection. Symptoms include a fever or an incision that leaks white, green, or yellow fluid. * Don't soak your incision in water until your doctor says its OK. This means no hot tubs, bathtubs, or swimming pools. * Follow your doctor's instructions for changing the dressing. * Dont rub the incision, or apply creams or lotions to it. * If you notice any redness or drainage around the bandage site, contact your surgeon's office immediately. 5. Follow-Up: Do Not miss your follow-up appointment. Keep up with all your appointments and yearly check ups When to call your doctor: Call your doctor right away if you have: Hip pain gets worse Pain or swelling in your calf or leg not related to your incision Tenderness or redness in your calf Fever of 100.4F (38C) or higher, or as directed by your healthcare provider Shaking chills Swelling or redness at the incision site gets worse Fluid draining from the incision Call 911: Call 911 right away if you have: Chest pain Shortness of breath Any pain or tenderness in your calf
[2017-10-30 18:07] VITALS: BP 138/63; PULSE 80; TEMP 97.7
[2017-10-30 18:42] VITALS: RESP 15
== END 2017-10-27 11:56 | disposition home or self-care (01) ==
LOC: HSDI 06:51 → N06 15:23
PROVIDERS: ADMIT Orthopaedic Surgery; ATTEND Orthopaedic Surgery